=== PATIENT | female | born 1950 | race American Indian/Alaskan Native ===

== ENCOUNTER 2017-07-08 07:27 | Outpatient (CLI) | payer MEDICARE ==
--- NOTE | 2017-07-13 19:17 | Magnetic Resonance Report ---
MR scan of the cranium was performed without contrast. Pulse sequences included: 1. T1 weighted sagittal and axial images without contrast 2. T2 weighted axial and coronal images 3. FLAIR axial images 4. Diffusion-weighted axial images 5. Apparent diffusion coefficient images Views of the posterior fossa showed a normal craniocervical junction. Cerebellar pontine angles were normal with normal seventh-eighth nerve complexes. Brainstem and cerebellum were normal. The ventricular system showed no dilatation or distortion. Images of the hemispheres showed occasional areas of increased signal consistent with araiosis. Sinuses, flow voids in the [place], orbits, pituitary and basal ganglia were normal. Impression: Normal MR scan of the cranium without contrast except for mild araiosis.
== END 2017-07-08 07:28 | disposition home or self-care (01) ==
LOC: MRI 07:27
PROVIDERS: ATTEND Specialist
DX: R41.1 Anterograde amnesia (principal)
CPT/HCPCS: 70551

== ENCOUNTER 2017-08-15 07:01 | Outpatient (CLI) | payer MEDICARE ==
[2017-08-15 07:40] LABS: Blood Urea Nitrogen 15 mg/dL (7-17)
--- NOTE | 2017-08-23 18:10 | Magnetic Resonance Report ---
MR scan of the cranium was performed with and without contrast and pituitary with and without contrast Pulse sequences included: 1. T1 weighted sagittal and axial images without contrast and T1 axial and coronal images with contrast 2. T2 weighted axial and coronal images 3. FLAIR axial images 4. Diffusion-weighted axial images 5. Apparent diffusion coefficient images Pituitary scans were performed using fine slices 1. T1 sagittal and coronal with and without contrast 2. T2 axial Views of the posterior fossa showed a normal craniocervical junction. Cerebellar pontine angles were normal with normal seventh-eighth nerve complexes. Brainstem and cerebellum were normal. The ventricular system showed no dilatation or distortion. Images of the hemispheres showed mild periventricular white matter changes consistent with araiosis. Sinuses, flow voids in the upper [place], orbits, and basal ganglia were normal. There are no abnormal areas of enhancement with contrast. Images of the pituitary show mild bulging of the diaphragm sella. There were no mass lesions in the pituitary and there was uniform enhancement. The cavernous sinus and flow voids of the carotids were normal. No involvement was seen of the optic nerves or chiasm. Impression: Normal MR scan of the cranium with and without contrast except for mild araiosis Normal mr scan of the pituitary with and without contrast
== END 2017-08-15 07:02 | disposition home or self-care (01) ==
LOC: MRI 07:01
PROVIDERS: ATTEND Specialist
DX: G31.84 Mild cognitive impairment of uncertain or unknown etiology (principal); R94.02 Abnormal brain scan; R51 Headache
CPT/HCPCS: 36415; 70553; 82533; 82565; 83001; 83003; 84146; 84520; A9577